=== PATIENT | male | born 1965 | race African-American/Black ===

== ENCOUNTER 2016-05-27 14:23 | Day surgery (SDC) | payer BC ==
[~2016-05-27] VITALS: Ht 170.2 cm; Wt 83.6 kg
[2016-05-27] MEDS ORDERED: PRINIVIL20 MG PO (14:52)
[2016-05-27] MEDS ORDERED: ZOCOR 20MG20 MG PO (14:52)
[2016-05-27 14:53] VITALS: BP 136/95; PULSE 63; TEMP 99
[2016-05-27] MEDS ORDERED: CARAFATE 1GM1 G PO (14:53)
[2016-05-27 16:50] VITALS: BP 146/95; PULSE 55; TEMP 98.5
[2016-05-27 17:05] VITALS: BP 152/89; PULSE 53
[2016-05-27 17:20] VITALS: BP 156/88; PULSE 52
== END 2016-05-27 17:30 | disposition home or self-care (01) ==
LOC: SDCO 14:23
DX: Z12.11 Encounter for screening for malignant neoplasm of colon (principal); D12.3 Benign neoplasm of transverse colon; D12.5 Benign neoplasm of sigmoid colon; D12.8 Benign neoplasm of rectum; I10 Essential (primary) hypertension; K63.5 Polyp of colon; Z79.899 Other long term (current) drug therapy; F17.210 Nicotine dependence, cigarettes, uncomplicated; K21.9 Gastro-esophageal reflux disease without esophagitis
CPT/HCPCS: OP; J2250; J3010; J7030

== ENCOUNTER 2018-06-10 01:52 | Emergency (ER) | payer OTHER ==
[~2018-06-10] VITALS: Ht 172.7 cm; Wt 86.4 kg
[~2018-06-10 01:52] MED LIST: CARAFATE 1GM1 G PO; PRINIVIL20 MG PO; ZOCOR 20MG20 MG PO
[2018-06-10 02:03] VITALS: TEMP 98
[2018-06-10] MEDS ORDERED: COZAAR100 MG PO (02:05)
[2018-06-10] MEDS ORDERED: ASPIRIN 81M81 MG/TA2 PO (02:06)
[2018-06-10 02:09] LABS: HEMATOCRIT 40.4 % (42.0-52.0); HEMOGLOBIN 12.5 g/dl (13.5-18.0); MEAN CELL VOLUME 71 fl (80.0-100.0); MEAN CORPUSCULAR HEMOGLOBIN 22 pg (27.0-31.0); MEAN CORPUSCULAR HGB CONC 31 g/dl (33.0-37.0); MEAN PLATELET VOLUME 9.5 fl (7.4-10.4); PLATELET COUNT 226 K/mm3 (130-400); RED BLOOD COUNT 5.72 M/mm3 (4.20-5.60); REDCELL DISTRIBUTION WIDTH-CV 15.5 % (11.5-14.5)
[2018-06-10 02:19] LABS: ALBUMIN 4.3 gm/dL (3.5-5.0); BILIRUBIN,TOTAL 0.3 mg/dL (0.0-1.0); CALCIUM 8.8 mg/dL (8.4-10.2); POTASSIUM 3.7 mmol/L (3.4-5.0); TOTAL PROTEIN 7.5 gm/dL (6.4-8.2)
[2018-06-10 02:32] LABS: PROTHROMBIN TIME 11.8 SECONDS (9.7-12.8); TROPONIN-I 0.129 ng/mL (0.000-0.035)
[2018-06-10 02:34] LABS: PARTIAL THROMBOPLASTIN TIME 35.2 SECONDS (26.0-37.0)
[2018-06-10 02:38] LABS: ANISOCYTOSIS 1+; EOSINOPHIL 1 % (0-4); HYPOCHROMIA 3+; LYMPHOCYTE 38 % (20.0-51.0); MICROCYTOSIS 1+; NEUTROPHILS 55 % (42.0-75.2); PLATELET ESTIMATE NORMAL (NORMAL)
[2018-06-10 02:39] LABS: OVALOCYTES 2+; TEAR DROP CELLS 1+
[2018-06-10] MEDS ORDERED: AMOXICILLIN 8751 TAB PO (02:45)
[2018-06-10 03:15] VITALS: BP 170/104; PULSE 60
== END 2018-06-10 03:15 | disposition short-term general hospital (02) ==
LOC: COL.ER 01:52
PROVIDERS: Emergency Medicine
DX: I21.09 ST elevation (STEMI) myocardial infarction involving other coronary artery of anterior wall (principal); I10 Essential (primary) hypertension; E78.5 Hyperlipidemia, unspecified; K21.9 Gastro-esophageal reflux disease without esophagitis; F17.210 Nicotine dependence, cigarettes, uncomplicated; Z79.82 Long term (current) use of aspirin
CPT/HCPCS: J1644; J2270; J2405; J3101

== ENCOUNTER 2018-07-19 14:52 | Outpatient (RCR) | payer OTHER ==
[~2018-07-19 14:52] MED LIST changes: +AMOXICILLIN 8751 TAB PO; +ASPIRIN 81M81 MG/TA2 PO; +COZAAR100 MG PO
== END 2018-07-28 06:04 | disposition home or self-care (01) ==
LOC: COL.CR 14:52
DX: Z48.812 Encounter for surgical aftercare following surgery on the circulatory system (principal); I21.9 Acute myocardial infarction, unspecified; Z95.5 Presence of coronary angioplasty implant and graft

== ENCOUNTER 2019-12-09 06:17 | Day surgery (SDC) | payer BC ==
[~2019-12-09] VITALS: Ht 170.2 cm; Wt 87.4 kg
[2019-12-09 06:36] VITALS: BP 184/103; PULSE 53; TEMP 98.3
[2019-12-09] MEDS ORDERED: COREG 6.256.25 MG/TA PO (06:39)
[2019-12-09] MEDS ORDERED: COZAAR100 MG PO (06:40)
[2019-12-09] MEDS ORDERED: NITROSTAT0.4 MG/TAB SL (06:40)
[2019-12-09] MEDS ORDERED: PLAVIX 75MG TAB75 MG PO (06:41)
[2019-12-09] MEDS ORDERED: CARAFATE 1GM1 G PO (06:41)
[2019-12-09] MEDS ORDERED: ASPIRIN 81M81 MG/TA2 PO (06:42)
[2019-12-09] MEDS ORDERED: CRESTOR40 MG PO (06:42)
[2019-12-09] MEDS ORDERED: WELLBUTRIN SR100 M1 PO (06:43)
[2019-12-09 07:40] VITALS: BP 194/97; PULSE 52; TEMP 97
--- NOTE | 2019-12-09 07:40 | NUR ---
Patient arrives to [facility] bay 1 via cart. He is alert and oriented. He tolerated the procedure well. He ambulates with standby assist and steady gait to chair in room. Monitoring is applied - VSS on room air (see follow-up note regarding elevated BP). His ride is at the bedside. He denies pain, nausea, or need. He is offered something to eat/drink and does not want anything. He agrees to drink some water prior to discharge. Will continue to monitor.
--- NOTE | 2019-12-09 07:46 | NUR ---
Patient's blood pressure is elevated at 194/97. Pre-op baseline BP was 184/103. Anesthesia provider, Declan Odell, is aware of elevated BP. Patient did not take his home BP medications yet today. Dr. Mccray is made aware and instructs nursing staff to tell the patient to take his BP medications when he gets home and follow-up with PCP.
--- NOTE | 2019-12-09 07:48 | NUR ---
Dr. Mccray comes to the bedside and speaks with the patient.
[2019-12-09 07:55] VITALS: BP 187/107; PULSE 48
--- NOTE | 2019-12-09 07:55 | NUR ---
Patient resting comfortably. Denies pain, nausea, or need. Tolerating PO well.
[2019-12-09 08:10] VITALS: BP 197/111; PULSE 47
--- NOTE | 2019-12-09 08:10 | NUR ---
Patient ambulates to the restroom with steady gait, voids, and returns to room. His chair pad has a small amount of blood on it when he stands. Dr. Mccray is notified of blood and orders that the patient is OK to discharge home, and he is to monitor bleeding and notify Dr. Mccray if rectal bleeding increases.
--- NOTE | 2019-12-09 08:21 | NUR ---
Patient has met discharge criteria. Discharge instructions are discussed. He verbalizes understanding and denies questions. PIV is removed with catheter intact and hemostasis achieved. He changes to his clothing independently. He is escorted to the exit via wheelchair. Discharged to home with ride in private vehicle at 0821.
== END 2019-12-09 08:21 | disposition home or self-care (01) ==
LOC: SDCO
DX: Z12.11 Encounter for screening for malignant neoplasm of colon (principal); D12.8 Benign neoplasm of rectum; D64.9 Anemia, unspecified; I25.2 Old myocardial infarction; I10 Essential (primary) hypertension; K21.9 Gastro-esophageal reflux disease without esophagitis; E78.00 Pure hypercholesterolemia, unspecified; F32.9 Major depressive disorder, single episode, unspecified; F41.9 Anxiety disorder, unspecified; Z20.828 Contact with and (suspected) exposure to other viral communicable diseases; Z79.82 Long term (current) use of aspirin; Z79.899 Other long term (current) drug therapy; Z79.02 Long term (current) use of antithrombotics/antiplatelets; Z95.5 Presence of coronary angioplasty implant and graft; Z87.891 Personal history of nicotine dependence
CPT/HCPCS: J2704; J7120

== ENCOUNTER → 2020-01-20 | Outpatient (CLI) | payer BC ==
[~2020-01-20] MED LIST changes: +COREG 6.256.25 MG/TA PO; +CRESTOR40 MG PO; +NITROSTAT0.4 MG/TAB SL; +PLAVIX 75MG TAB75 MG PO; +WELLBUTRIN SR100 M1 PO
== END ==
LOC: ZCOL.LAB 17:21
DX: Z20.828 Contact with and (suspected) exposure to other viral communicable diseases (principal)

== ENCOUNTER → 2021-04-30 | Outpatient (CLI) | payer BC | LOC: MHCPAIN 13:49 | DX: M47.817 Spondylosis without myelopathy or radiculopathy, lumbosacral region (principal); M53.3 Sacrococcygeal disorders, not elsewhere classified; M54.16 Radiculopathy, lumbar region | CPT/HCPCS: G0463 ==

== ENCOUNTER → 2021-05-09 | Outpatient (CLI) | payer BC | LOC: MHCPAIN 08:04 | DX: M47.817 Spondylosis without myelopathy or radiculopathy, lumbosacral region (principal); M53.3 Sacrococcygeal disorders, not elsewhere classified; M54.16 Radiculopathy, lumbar region | CPT/HCPCS: J1100; Q9967 ==

== ENCOUNTER → 2021-05-27 | Outpatient (CLI) | payer BC | LOC: MHCPAIN 09:30 | DX: M47.817 Spondylosis without myelopathy or radiculopathy, lumbosacral region (principal); M53.3 Sacrococcygeal disorders, not elsewhere classified; M54.16 Radiculopathy, lumbar region | CPT/HCPCS: G0463 ==

== ENCOUNTER → 2021-06-06 | Outpatient (CLI) | payer BC | LOC: MHCPAIN 08:25 | DX: M47.817 Spondylosis without myelopathy or radiculopathy, lumbosacral region (principal); M53.3 Sacrococcygeal disorders, not elsewhere classified; M54.16 Radiculopathy, lumbar region | CPT/HCPCS: J1100; Q9967 ==

== ENCOUNTER → 2021-07-03 | Outpatient (CLI) | payer BC | LOC: MHCPAIN 08:53 | DX: M47.817 Spondylosis without myelopathy or radiculopathy, lumbosacral region (principal); M53.3 Sacrococcygeal disorders, not elsewhere classified; M54.16 Radiculopathy, lumbar region | CPT/HCPCS: G0463 ==

== ENCOUNTER → 2021-07-15 | Outpatient (CLI) | payer BC | LOC: MHCPAIN 15:03 | DX: M47.817 Spondylosis without myelopathy or radiculopathy, lumbosacral region (principal); M53.3 Sacrococcygeal disorders, not elsewhere classified; M54.16 Radiculopathy, lumbar region | CPT/HCPCS: J1100; Q9967 ==

== ENCOUNTER → 2021-08-12 | Outpatient (CLI) | payer BC | LOC: MHCPAIN 09:30 | DX: M47.896 Other spondylosis, lumbar region (principal); M54.16 Radiculopathy, lumbar region; G89.29 Other chronic pain | CPT/HCPCS: G0463 ==

== ENCOUNTER 2023-11-27 05:24 | Day surgery (SDC) | payer BC ==
[~2023-11-27] VITALS: Ht 165.1 cm; Wt 86.1 kg
[~2023-11-27 05:24] MED LIST changes: +LR 1,000 ML IV SCH; +Ondansetron 4 MG/2 ML VIAL IV PRN
--- NOTE | 2023-11-27 05:40 | NUR ---
PATIENT AMBULATED TO BAY 1 WITH STEADY GAIT. ALERT AND ORIENTED X4. VERBALIZED UNDERSTANDING OF PROCEDURE. CONSENTS SIGNED. REPORTS HE QUIT SMOKING [place] 2 YEARS AGO.
[2023-11-27] MEDS ORDERED: COREG12.5 MG PO (06:14)
[2023-11-27 06:32] VITALS: BP 195/96; PULSE 49; TEMP 97
--- NOTE | 2023-11-27 06:34 | NUR ---
CALL PLACED TO KAYLA Adams CRNA. INFORMED KAYLA Adams CRNA OF PATIENTS BLOOD PRESSURE (195/96) AND DISCUSSED HOME MEDS AND CARDIAC HISTORY. REPORTED PATIENT LAST FLUID INTAKE 0530 TODAY (11/26). PER KAYLA Adams CRNA PROCEDURE WILL PROCEED, NO NEW ORDERS.
[2023-11-27 07:40] VITALS: BP 185/93; PULSE 48; TEMP 97
[2023-11-27 07:55] VITALS: BP 200/97; PULSE 46
[2023-11-27 08:10] VITALS: BP 210/100; PULSE 44
--- NOTE | 2023-11-27 08:15 | NUR ---
0740 RETURNS TO ROOM 1 PER CART. AWAKE, ALERT. RESP UNLABORED. AMBULATES TO RECLINER WITH STANDBY ASSIST. DENIES NAUSEA OR ABD PAIN. VITAL SIGNS OBTAINED. CALL LIGHT AT SIDE. IN ROOM 0750 TOLERATES PO JUICE WITHOUT NAUSEA. DISCHARGE INSTRUCTIONS REVIEWED. PATIENT VERBALIZES UNDERSTANDING. COPY PROVIDED IN DISCHARGE FOLDER 0805 DR. BOYER HERE TO VISIT WITH PATIENT 0808 Valentina JEAN BAPTISTE CRNA NOTIFIED OF ELEVATED BLOOS PRESSURE. NO NEW ORDERS 0812 PATIENT DRESSES SELF
== END 2023-11-27 08:18 | disposition home or self-care (01) ==
LOC: SDCO 05:24
DX: Z12.11 Encounter for screening for malignant neoplasm of colon (principal); D12.2 Benign neoplasm of ascending colon; D12.5 Benign neoplasm of sigmoid colon; K63.5 Polyp of colon; I25.2 Old myocardial infarction; Z95.5 Presence of coronary angioplasty implant and graft; Z87.891 Personal history of nicotine dependence; Z79.82 Long term (current) use of aspirin
CPT/HCPCS: J2704; J7120